=== PATIENT | female | born 1985 | race American Indian/Alaskan Native ===

== ENCOUNTER 2016-10-14 10:26 | Outpatient (CLI) | payer MEDICAID ==
--- NOTE | 2016-10-14 12:53 | Ultrasound Report ---
THYROID ULTRASOUND:10/14/16 10:26:00 CLINICAL: Neck swelling. FINDINGS: High-resolution ultrasound demonstrated an enlarged multinodular thyroid. The right lobe measures 4.6 x 2.0 x 1.6 cm. The left lobe measures 5.3 x 2.5 x 2.0 cm . The isthmus measures 5 mm AP thickness. Numerous bilateral benign colloid cysts. Bilateral complex cystic and solid nodules have similar architecture. The largest is in the mid left lobe extending into the lower pole and it measures 4.0 x 2.4 x 1.6 cm. A similar left upper pole nodule measures 1.3 x 0.9 x 0.8 cm. A similar complex nodule in the mid right lobe which is 1.8 x 1.4 x 1.2 cm. IMPRESSION: Enlarged multinodular thyroid with numerous bilateral benign colloid cysts and bilateral complex cystic and solid nodules with similar architecture. Recommend followup with ultrasound in six months to reevaluate the size of the solid nodules.
== END 2016-10-14 10:27 | disposition home or self-care (01) ==
LOC: SPVWC 10:26
PROVIDERS: ATTEND Internal Medicine
DX: E04.2 Nontoxic multinodular goiter (principal); R59.9 Enlarged lymph nodes, unspecified
CPT/HCPCS: 76536